=== PATIENT | female | born 1960 | race Caucasian/White ===

== ENCOUNTER → 2020-03-04 07:28 | Outpatient (CLI) | payer OTHER, SELFPAY ==
--- NOTE | ~2020-03-04 | MM_ITS ---
EXAMINATION: MM screening thea BI w [facility] HISTORY: Screening mammogram TECHNIQUE: Craniocaudal and mediolateral oblique 3-D tomosynthesis images were obtained and synthetic 2-D images were generated. CAD analysis was submitted and interpreted. COMPARISON: 11/30/2018 diagnostic left digital mammogram 11/27/2018 bilateral digital screening mammogram BREAST PARENCHYMAL COMPOSITION: The breasts are heterogeneously dense, which may obscure small masses . FINDINGS: Stable mild fibroglandular asymmetry. There is no evidence of suspicious mass, calcificatio n, or architectural distortion to suggest malignancy in either breast. There has been no suspicious i nterval change. IMPRESSION: 1. No mammographic evidence of malignancy. 2. Recommend routine screening mammography in one year. BI-RADS Category 2: Benign finding(s). Reviewed, dictated and finalized at location A. [employer]
== END ==
PROVIDERS: Visit Provider Obstetrics & Gynecology
DX: Z12.31 Encounter for screening mammogram for malignant neoplasm of breast (principal)
CPT/HCPCS: 77063; 77067

== ENCOUNTER 2021-07-03 10:48 | Outpatient (CLI) | payer OTHER, SELFPAY ==
--- NOTE | ~2021-07-03 | US_ITS ---
US right upper quadrant DATE: 07/03/2021 11:20 INDICATION: Liver disease TECHNIQUE: Real-time imaging and Doppler analysis of the right upper quadrant COMPARISON: None FINDINGS: No hepatic or pancreatic space-occupying mass lesion is evident. Normal hepatopedal portal venous flow direction. The common bile duct measures 3 mm, normal. No gallstones or gallbladder wall thickening are evident. Negative sonographic Parsons's sign. The pancreatic head, neck and proximal body are unremarkable. The distal body and tail are obscured b y bowel gas. IMPRESSION: Limited evaluation of pancreas; otherwise unremarkable examination Reviewed, dictated and finalized at [facility]. Reviewed, dictated and finalized at location A.
== END 2021-07-03 10:49 | disposition home or self-care (01) ==
PROVIDERS: PCP Internal Medicine; Visit Provider Clinical Nurse Specialist
DX: K76.9 Liver disease, unspecified (principal)
CPT/HCPCS: 76705

== ENCOUNTER → 2021-07-06 10:07 | Outpatient (CLI) | payer OTHER, SELFPAY ==
--- NOTE | ~2021-07-06 | MM_ITS ---
EXAMINATION: MM screening thea BI w [facility] HISTORY: Screening TECHNIQUE: Craniocaudal and mediolateral oblique 3-D tomosynthesis images were obtained and synthetic 2-D images were generated. CAD analysis was submitted and interpreted. COMPARISON: 11/27/2018 BREAST PARENCHYMAL COMPOSITION: The breasts are heterogeneously dense, which may obscure small masses . FINDINGS: There is no evidence of suspicious mass, calcification, or architectural distortion to sugg est malignancy in either breast. There has been no suspicious interval change. IMPRESSION: 1. No mammographic evidence of malignancy. 2. Recommend routine screening mammography in one year. BI-RADS Category 1: Negative Reviewed, dictated and finalized at location A.
== END ==
PROVIDERS: PCP Internal Medicine; Visit Provider Obstetrics & Gynecology
DX: Z12.31 Encounter for screening mammogram for malignant neoplasm of breast (principal)
CPT/HCPCS: 77063; 77067

== ENCOUNTER 2024-11-26 09:33 | Day surgery (SDC) | payer OTHER, SELFPAY ==
[2024-08-14 12:59] VITALS: BMI 37.2
[2024-11-07 11:56] VITALS: BMI 35.9
[2024-11-26 10:16] VITALS: BP 152/91; PULSE 77; RESP 16; TEMP 37.3; O2SAT 98
[2024-11-26] MEDS: LACTATED RINGERS 1,000 ML 150 ML IV CONT (10:19)
--- NOTE | 2024-11-26 10:59 | P.HP_ITS ---
H&P: HPI History of Present Illness Date/Time: 11/26/24 10:59 Chief Complaint: Family history of colorectal cancer Narrative: This patient has family history of colorectal cancer. his sister had colorectal cancer at age 60. Review of Systems Review of Systems: All systems reviewed & are unremarkable except as noted in HPI and below PMFSH Past Medical History Medical History Thyroid disorder Back complaints Lower back injections Surgical History Surgical History H/O wrist surgery 2011 H/O knee surgery 1999 Family History Family History Mother Hypertension Alzheimers disease Sibling Carcinoma of colon Lymphoma Lung cancer Father Acute myocardial infarction Diabetes mellitus Social History Social History Social History: Caffeine- tea Smoking status: Former smoker Tobacco type: cigarettes Alcohol intake: current Alcohol use details: rarely Substance use: never Substance use type: does not use Lack of Transportation: No Lack of Food: Never True Current Housing: I Have Housing Concerned About Future Housing: No Difficulty Paying Gas/Electric Bills: No Difficulty Paying for Meds: No Currently Unemployed: No Education: High School Diploma/GED Difficulty w/ Childcare or Family Care: No Living arrangements: alone Spiritual care concerns: No Meds Home Medications and Allergies Home Medications ?Medication ?Instructions ?Recorded ?Confirmed ?Type ascorbate calcium (vitamin C) 500 500 mg PO DAILY 03/0411/26/24 History mg tablet multivitamin 1 tablet PO DAILY 03/13/20 0 11/26/24 History magnesium glycinate 120 mg (as 120 mg PO DIRECTED 0 11/07/24 11/26/24 History glycinate) capsule total beets 1 cap PO DAILY 11/07/24 0808/26 History Synthroid 75 mcg tablet See Rx Instructions .Route 0 11/12/24 11/26/24 Rx (levothyroxine) .COMPLEX #90 tabs Allergies Allergy/AdvReac Type Severity Reaction Status Date / Time cephalexin (From Keflex) Allergy Facial Verified 11/26/24 10:15 Swelling Vital Signs Vital Signs - 24 hr 11/26/24 10:16 Temperature 99.1 F Pulse Rate 77 Respiratory Rate 16 Blood Pressure 152/91 H Pulse Oximetry 98 Oxygen Delivery Room Air Exam Const: General: cooperative and healthy appearing Resp: Effort & Inspection: normal respiratory effort and able to speak in complete sentences Auscultation: clear to auscultation bilaterally Cardio: Rate: regular rate Rhythm: regular rhythm GI: Inspection: normal to inspection GI Palp: No No hepatosplenomegaly present Auscultation: normal bowel sounds Rectal Exam: deferred Skin: General skin exam: normal color Psych: Appearance: grossly normal Mental Status: mental status grossly normal Assessment and Plan Assessment and plan (1) Family history of malignant neoplasm of colon in first degree relative diagnosed when younger than 60 years of age: Code(s): Z80.0 - Family history of malignant neoplasm of digestive organs Status: Acute Assessment and Plan: The patient is deemed a good candidate for the procedure. Consent signed. Wi ll proceed.
--- NOTE | 2024-11-26 11:12 | WPDANESEPPF ---
Anes - Initial Pre Proc Eval Procedure: Operation Date: 11/26/24 11:30 Proposed Procedures p Screening Colonoscopy - Antonio Quintana MD Date/Time: 11/26/24 11:12 Surgeon: Antonio Quintana MD Pre Op Diagnosis: Family HX of Colon Cancer Patient Data Age: 64 Gender: F Height: 1.6 m Weight: 90.35 kg Last Vital Signs Temp 99.1 F 11/26/24 10:16 Pulse 77 11/26/24 10:16 Resp 16 11/26/24 10:16 BP 152/91 H 11/26/24 10:16 Pulse Ox 98 11/26/24 10:16 O2 Del Method Room Air 11/26/24 10:16 Allergies Allergy/AdvReac Type Severity Reaction Status Date / Time cephalexin (From Keflex) Allergy Facial Verified 11/26/24 10:15 Swelling Home Medications ?Medication ?Instructions ?Recorded ?Confirmed ?Type ascorbate calcium (vitamin C) 500 500 mg PO DAILY 03/13/20 11/26/24 History mg tablet multivitamin 1 tablet PO DAILY 03/13/20 11/26/24 History magnesium glycinate 120 mg (as 120 mg PO DIRECTED 11/07/24 11/26/24 History glycinate) capsule total beets 1 cap PO DAILY 11/07/24 11/26/24 History Synthroid 75 mcg tablet See Rx Instructions .Route 11/12/24 11/26/24 Rx (levothyroxine) .COMPLEX #90 tabs Patient hx anesthesia problems: none Family hx anesthesia problems: none Results Review: All pre-operative results and documents have been reviewed as part of the pre-operative evaluation. [facility] Past Medical History Medical History Thyroid disorder Back complaints Lower back injections Surgical History Surgical History H/O wrist surgery 2011 H/O knee surgery 1999 Family History Family History Mother Hypertension Alzheimers disease Sibling Carcinoma of colon Lymphoma Lung cancer Father Acute myocardial infarction Diabetes mellitus Social History Social History Social History: Caffeine- tea Smoking status: Former smoker Tobacco type: cigarettes Alcohol intake: current Alcohol use details: rarely Substance use: never Substance use type: does not use Lack of Transportation: No Lack of Food: Never True Current Housing: I Have Housing Concerned About Future Housing: No Difficulty Paying Gas/Electric Bills: No Difficulty Paying for Meds: No Currently Unemployed: No Education: High School Diploma/GED Difficulty w/ Childcare or Family Care: No Living arrangements: alone Spiritual care concerns: No Anes - Eval Final PreProcedure Day of Procedure 11/26/24 11:12 Heart: regular rate and rhythm Lungs: clear to auscultation Airway: Mallampati scale class II Neurological: alert and oriented Last oral intake: >/= 8 hours ASA classification: II Anesthetic plan: proceed Anesthesia type and monitoring: monitored anesthesia care Results Review: All pre-operative results and documents have been reviewed as part of the pre-operative evaluation. Informed Consent: The patient's anesthetic plan and its attendant risks and benefits were discussed with the patient/family/POA. Questions were solicited and answers provided to the satisfaction of the patient/family/POA.
--- NOTE | 2024-11-26 11:39 | WPDANESPN ---
Anes - Prog Note Post-Op Date/Time: 11/26/24 11:39 Vital Signs: Last Vital Signs Temp 99.1 F 11/26/24 10:16 Pulse 77 11/26/24 10:16 Resp 16 11/26/24 10:16 BP 152/91 H 11/26/24 10:16 Pulse Ox 98 11/26/24 10:16 O2 Del Method Room Air 11/26/24 10:16 Pain Score (VAS): no Patient Feedback: Patient satisfied with anesthetic care.
[2024-11-26] MEDS: SIMETHICONE ORAL SUSPENSION 20 MG/0.3 ML 30 ML BOTTLE 0.6 ML IRRIGATION (11:46)
[2024-11-26 11:50] VITALS: BP 103/59; PULSE 67; RESP 15; O2SAT 98
[2024-11-26 12:00] VITALS: BP 135/81; PULSE 59; RESP 16; O2SAT 98
[2024-11-26 12:10] VITALS: BP 136/76; PULSE 56; RESP 16; O2SAT 98
== END 2024-11-26 12:20 | disposition home or self-care (01) ==
PROVIDERS: PCP Internal Medicine; Visit Provider Internal Medicine Gastroenterology
PROC: 0DJD8ZZ Inspection of Lower Intestinal Tract, Via Natural or Artificial Opening Endoscopic (ICD-10-PCS; CPT 45378; principal; 2024-11-26 11:30)
DX: Z12.11 Encounter for screening for malignant neoplasm of colon (principal); Z80.0 Family history of malignant neoplasm of digestive organs
CPT/HCPCS: 45378